=== PATIENT | female | born 1930 | race Caucasian/White ===

== ENCOUNTER 2019-09-12 09:22 | Emergency (ER) | payer OTHER ==
[~2019-09-12] VITALS: Ht 157.5 cm; Wt 59.0 kg
[2019-09-12 12:12] VITALS: BP 113/68
== END 2019-09-12 12:12 | disposition home or self-care (01) ==
LOC: ED 09:22
DX: S09.8XXA Other specified injuries of head, initial encounter (principal); I10 Essential (primary) hypertension; Z98.890 Other specified postprocedural states; Z90.710 Acquired absence of both cervix and uterus; W18.30XA Fall on same level, unspecified, initial encounter; Y93.89 Activity, other specified; Y92.89 Other specified places as the place of occurrence of the external cause; Y99.8 Other external cause status
CPT/HCPCS: J1885

== ENCOUNTER 2019-09-20 11:39 | Emergency (ER) | payer OTHER ==
[~2019-09-20] VITALS: Ht 162.6 cm; Wt 54.4 kg
[2019-09-20 11:42] VITALS: Ht 162.6 cm; Wt 54.4 kg
[2019-09-20 12:29] LABS: BASOPHIL % 0.4 % (0-2); PLATELET COUNT 222 x10^3mcL (130-400); RED CELL DISTRIBUTION WIDTH 15.8 % (11.5-14.5)
[2019-09-20 12:55] LABS: CALCIUM 9.5 mg/dL (8.5-10.1); CARBON DIOXIDE 29.4 mmol/L (21-32); CHLORIDE SERUM 102 mmol/L (98-107); CREATININE SERUM 0.9 mg/dL (0.6-1.0); GLUCOSE SERUM 87 mg/dL (74-106); POTASSIUM SERUM 3.7 mmol/L (3.5-5.1); SODIUM SERUM 141 mmol/L (136-145)
[2019-09-20 12:59] LABS: ALBUMIN 3.4 g/dL (3.4-5.0); ALKALINE PHOSPHATASE 116 U/L (46-116); ALT/SGPT 35 U/L (14-59); AST/SGOT 32 U/L (15-37); BILIRUBIN TOTAL 0.42 mg/dL (0.20-1.00); TOTAL PROTEIN, SERUM 7.6 g/dL (6.4-8.2)
[2019-09-20 13:27] LABS: CHOLESTEROL 253 mg/dL (<200); HDL CHOLESTEROL 88 mg/dL (40-60)
[2019-09-20 14:26] LABS: microscopic required? NO
[2019-09-20 14:46] LABS: UA SPECIFIC GRAVITY <=1.005 (1.005-1.035); urine erythrocyte NEGATIVE (NEGATIVE)
[2019-09-20 16:50] VITALS: BP 163/93
== END 2019-09-20 16:50 | disposition home or self-care (01) ==
LOC: ED 11:39
PROVIDERS: Emergency Medicine
DX: E86.0 Dehydration (principal); G31.84 Mild cognitive impairment of uncertain or unknown etiology; S09.8XXA Other specified injuries of head, initial encounter; I10 Essential (primary) hypertension; M19.90 Unspecified osteoarthritis, unspecified site; Z88.5 Allergy status to narcotic agent; Z88.6 Allergy status to analgesic agent; Z88.8 Allergy status to other drugs, medicaments and biological substances; W18.39XA Other fall on same level, initial encounter; Y93.89 Activity, other specified; Y92.89 Other specified places as the place of occurrence of the external cause; Y99.8 Other external cause status
CPT/HCPCS: 82962; J7030

== ENCOUNTER 2019-09-29 06:58 | Observation (INO) | payer OTHER ==
[~2019-09-29] VITALS: Ht 160 cm; Wt 54.4 kg
--- NOTE | 2019-09-29 07:02 | NUR ---
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" HOWEVER UNKNOWN LAST DOSE TIME, UPON ARRIVAL PT FOLLOWS COMMAND WHEN ASKED TO SUCCESS COACH BILATERAL HANDS AND FLEX BILATERAL FEET, PT OPENS EYES TO MY VOICE WHEN ASKED TO HOWEVER NONVERBAL AT THIS TIME, PUPILS BRISK AND REACTIVE, RESPIRATIONS EVEN AND UNLABORED, LUNGS CTA, AIRWAY PATENT WITH C-COLLAR IN PLACED, PT WEARING SWEATS AND LONG SLEEVE, SKIN PINK DRY WARM, PT NOTED TO BE HYPOTHERMIC, +PCM TO ALL EXTREMITIES, ABD SOFT ROUND NONDISTENDED, ABRASION WITH NO ACTIVE BLEEDING NOTED TO LEFT KNEE AND ECCYMOSIS NOTED TO RIGHT ANTERIOR THIGH, PT GOWNED, PLACED ON FULL CM IN SUPINE POSITION, WITH BED LOCKED IN LOWEST POSITION AND BOTH SIDE RAILS UP, MD SING AT BEDSIDE PERFORMING MSE.
--- NOTE | 2019-09-29 07:10 | NUR ---
MD MARSH MADE AWARE OF PT TEMP.,BLANKET WARMER WITH RECTAL PROBE IN PLACE
--- NOTE | 2019-09-29 07:11 | NUR ---
WARM BLANKE PLACED ON PT BODY AND ONE ACROSS HEAD
--- NOTE | 2019-09-29 07:11 | NUR ---
WARM BLANKET PLACED ON PT BODY AND ONE ACROSS HEAD
--- NOTE | 2019-09-29 07:14 | NUR ---
ROBERT ARCE/TELLY UNAVAILABLE AT THIS TIME IN ED, EMT CARMEN WENT TO ICU THEY INFORMED HIM THAT HE NEEDS TO CALL [facility]
--- NOTE | 2019-09-29 07:14 | NUR ---
TELLY JONES UNAVAILABLE AT THIS TIME IN ED, EMT CARMEN WENT TO ICU THEY INFORMED HIM THAT HE NEEDS TO CALL [facility]
--- NOTE | 2019-09-29 07:15 | NUR ---
[facility] PROVIDED BY RAY SHANNON [phone]
--- NOTE | 2019-09-29 07:15 | NUR ---
CONTINUOUS RECTAL PROBE IN PLACE
--- NOTE | 2019-09-29 07:23 | NUR ---
LAB AT BEDSIDE
--- NOTE | 2019-09-29 07:38 | NUR ---
NITISH ANDRADE RN INFORMED BREMEN MARIO OF NEED FOR BLANKET WARMER/GAYMAR
--- NOTE | 2019-09-29 07:41 | NUR ---
PT TAKEN TO CT VIA [facility]
[2019-09-29 07:49] LABS: PLATELET COUNT 216 x10^3mcL (130-400); RED CELL DISTRIBUTION WIDTH 15.9 % (11.5-14.5)
[2019-09-29 07:50] LABS: BASOPHIL % 0.3 % (0-2)
--- NOTE | 2019-09-29 08:10 | NUR ---
PER MD SING VERBAL ORDER HOLD PORTABLE CXR D/T C-COLLAR IN PLACE, RADIOLOGY AWARE
[2019-09-29 08:11] LABS: CARBON DIOXIDE 29.4 mmol/L (21-32); CHLORIDE SERUM 102 mmol/L (98-107); CREATININE SERUM 0.8 mg/dL (0.6-1.0); GLUCOSE SERUM 87 mg/dL (74-106); POTASSIUM SERUM 3.9 mmol/L (3.5-5.1); SODIUM SERUM 138 mmol/L (136-145)
--- NOTE | 2019-09-29 08:11 | NUR ---
MG MARSH MADE AWARE OF PT LYNN LANG RECONTACTED IN REGARDS TO NEEDING GAYMAR SHE INFORMED ME SHE WILL CONTACT ME AFTER SEEING IF OR HAS AN EXTRA ONE
[2019-09-29 08:12] LABS: ALBUMIN 3.3 g/dL (3.4-5.0); ALKALINE PHOSPHATASE 119 U/L (46-116); ALT/SGPT 39 U/L (14-59); AST/SGOT 30 U/L (15-37); BILIRUBIN TOTAL 0.6 mg/dL (0.20-1.00); CALCIUM 9.8 mg/dL (8.5-10.1); TOTAL PROTEIN, SERUM 7.7 g/dL (6.4-8.2)
--- NOTE | 2019-09-29 08:12 | NUR ---
2 WARM BLANKETS WITH THIN SHEET IN BETWEEN PLACED ON PT
--- NOTE | 2019-09-29 08:14 | NUR ---
LYNN BRADLEY CONTACTED ME INFORMED ME TO GO TO OR TO OBTAIN THE GAYMAR ROBERT
--- NOTE | 2019-09-29 08:35 | NUR ---
GAYMAR BLANKET OBTAINED, LEAKAGE NOTED, OR CONTACTED AND INFORMED ME THEY WILL DROP OFF ANOTHER GAYMAR BLANKET
--- NOTE | 2019-09-29 08:39 | NUR ---
OR STAFF PROVIDED MULTIPLE REPLACEMENT GAYMAR BLANKETS. THIN SHEET PLACED ON PT, GAYMAR BLANKET PLACED OVER THIN SHEET. RECTAL PROBE IN PLACE AND CONNECTED TO GAYMAR FOR CONTINUOUS RECTAL TEMP MONITORING. WILL CONTINUE TO MONITOR PT
--- NOTE | 2019-09-29 08:49 | NUR ---
PER MD MAXIMO DENISE TO D/C C-COLLAR, C-COLLAR REMOVED. VSS
--- NOTE | 2019-09-29 08:57 | NUR ---
PT REMAINS NSR ON CM AND FOLLOWS COMMANDS HOWEVER NO VERBAL RESPONSE NOTED AT THIS TIME
--- NOTE | 2019-09-29 09:14 | NUR ---
DAUGHTER ANNA CALLED, INFORMED HER I WILL CONTACT HER WHEN STATUS OF PT ADMITTANCE FOR D/C BACK TO [place] IS DETERMINED
--- NOTE | 2019-09-29 09:17 | NUR ---
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
--- NOTE | 2019-09-29 09:30 | NUR ---
PT REMAINS NSR ON CM WITH RESPIRATIONS EVEN AND UNLABORED, PT EYES NOTED TO BE OPEN AT THIS TIME, WILL CONTINUE TO MONITOR
--- NOTE | 2019-09-29 10:24 | NUR ---
PT ASLEEP BUT AROUSABLE IN POSITION OF COMFORT, RESPIRATIONS EVEN AND UNLABORED, NSR ON CM, WILL CONTINUE TO MONITOR RECTAL TEMP VIA RECTAL PROBE IN PLACE
--- NOTE | 2019-09-29 11:42 | NUR ---
PT RESTING IN POSITION OF COMFORT, RESPIRATIONS EVEN AND UNLABORED, NSR ON CM, WHEN PT ASKED IF SHE IS COLD SHE STS "NO" WHEN PT ASKED IF SHE IS WARM SHE STS NO"
[2019-09-29] MEDS ORDERED: COZAAR25 M1 (11:49)
[2019-09-29] MEDS ORDERED: TIROSINT13 MCG (11:49)
[2019-09-29] MEDS ORDERED: ADV200 ×2 (11:50→11:51)
[2019-09-29] MEDS ORDERED: ATI0.5 (11:50)
[2019-09-29] MEDS ORDERED: LORAZEPAM1 POW (11:50)
[2019-09-29] MEDS ORDERED: LOPERAMIDE HCL2 M1 (11:51)
[2019-09-29] MEDS ORDERED: RESTORIL7.5 MG (11:51)
[2019-09-29] MEDS ORDERED: ACETAMINOPHEN325 M3 (11:51)
[2019-09-29] MEDS ORDERED: GOOD NEIGH1200 MG/15 (11:52)
--- NOTE | 2019-09-29 12:05 | NUR ---
PT DAUGHTER, JIE, AT BEDSIDE
--- NOTE | 2019-09-29 12:07 | NUR ---
PER JIE, PT HAS HX FALLS "RECENTLY" MD MARSH MADE AWARE
--- NOTE | 2019-09-29 12:08 | NUR ---
PER JIE, "I WAS ON THE PHONE WITH THE PEOPLE THERE WHEN SHE FELL AND HEARD HER SAY HER BACK HURT" MD MARSH MADE AWARE
--- NOTE | 2019-09-29 12:33 | NUR ---
PER JIE, PT AMBULATES WITH WALKER AT [place], NO WALKER PRESENT AT TIME OF ARRIVAL
--- NOTE | 2019-09-29 12:34 | NUR ---
REPORT GIVEN TO REJI MONTOYA, SHE IS AWARE OF [employer] TEMP 97 DEGREES FARENHEIT BEFORE D/C GAYMAR WARMER PER MD SING VERBAL ORDER, GAYMAR MACHINE WILL BE TRANSPORTED TO SAME DAY SURGERY CENTER WITH PT.
[2019-09-29 13:26] VITALS: BP 143/82
[2019-09-29 13:31] VITALS: Ht 160 cm; Wt 54.4 kg
--- NOTE | 2019-09-29 13:32 | NUR ---
PT WAS RECEIV[facility] BY PRIMARY NURSE MENDOZA [facility]. PT SEEN LYING IN BED, AWAKE BUT DISORIENTED, ABLE TO FOLLOW SOME SIMPLE COMMANDS. NO FACIAL DROOP/ARM DRIFT NOTED. NO SOB NOTED, LUNG SOUNDS DIMINISHED ON AUSCULTATION, O2 SAT=94%. NO S/S OF CHEST PAIN/PRESSURE, NM=80. NO S/S OF ABDOMINAL DISCOMFORT. BOWEL SOUNDSA ACTIVE. HAD BM TODAY. W/ KHMER 16 MORALES CATHETER DRAINING W/ YELLOW COLORED URINE. W/ SCAB ON THE LEFT KNEE AND RIGHT THIGH ECCHYMOSIS, JANKI. PT MOANS WHEN TURNED AND REPOSITIONED. W/ GAYMAR WARMER BLANKET ON, RECTAL TEMP=96.8 AT THIS TIME. SIDE RAILS UPX2. CALL LIGHT ON REACH. DAUGHTER AT BEDSIDE. PRIMARY NURSE REJI AT BEDSIDE FOR CONTINUITY OF CARE
--- NOTE | 2019-09-29 14:46 | NUR ---
PT LYING IN BED A/A. PT BREATHING EQUAL/UNLABORED ON RA. PT IS MUMBLING BUT IS NOT CLEARLY COMMUNICATING. RECTAL TEMP IS 98.1F, GAYMAR WARMER WAS TURNED OFF. SKIN IS FREE FROM MAX. MORALES IN PLACE, FLOWING TO GRAVITY. IVF RUNNING AT 80ML/HR, SITE WNL. BED IN LOW POSITION, CALL LIGHT IN REACH, SAFETY PRECAUTIONS IN PLACE. WILL CONTINUE TO MONITOR
[2019-09-29] MEDS ORDERED: LOSARTAN POTASS25 M1 PO (15:18)
[2019-09-29] MEDS ORDERED: TIROSINT50 MC1 PO (15:18)
[2019-09-29] MEDS ORDERED: PROLIA60 MG/ML SC (15:19)
[2019-09-29] MEDS ORDERED: APAP EXTRA STR500 MG PO (15:19)
[2019-09-29] MEDS ORDERED: IBU600 M2 PO (15:20)
[2019-09-29] MEDS ORDERED: LOPERAMIDE HCL2 M1 PO (15:21)
[2019-09-29] MEDS ORDERED: ATI0.5 PO (15:21)
[2019-09-29] MEDS ORDERED: RES15 PO (15:22)
[2019-09-29 16:25] VITALS: BP 102/62; BP 202/62
[2019-09-29 16:39] LABS: UA SPECIFIC GRAVITY 1.025 (1.005-1.035); microscopic required? YES; urine erythrocyte NEGATIVE (NEGATIVE)
--- NOTE | 2019-09-29 18:28 | NUR ---
PT LYING IN BED A/A. BREATHING EQUAL/UNLABORED ON RA. PT IS MUMBLING BUT NO CLEAR COMMUNICATION STILL. IVF RUNNING AT 80ML/HR, SITE WNL. RECTAL TEMP IS NOW 98.2 F. BED IN LOW POSITION, CALL LIGHT IN REACH, SAFETY PRECAUTIONS IN PLACE. WILL ENDORSE TO NIGHT NURSE
--- NOTE | 2019-09-29 19:10 | NUR ---
RECEIVED REPORT FROM REJI MONTOYA. PT IS AWAKE, ALERT, AND DISORIENTED. PT IS ABLE TO FOLLOW SIMPLE COMMANDS AND ANSWER SIMPLE QUESTIONS AT TIMES. PT IS CONFUSED, BUT EASILY REORIENTED TO SURROUNDINGS. PT IS MOANING/LAUGHING AT TIMES, BUT IS UNABLE TO EXPRESS NEEDS AT THIS TIME. PT IS MED-SURG AND NO S/S OF CHEST PAIN OR PRESSURE IS NOTED AT THIS TIME. PT PULSES ARE PALPABLE AND CAP REFILL <3 SEC. PT LUNG SOUNDS ARE DIMINISHED TO BLL ON RA. PT BREATHING EVEN AND UNLABORED. NO S/S OF SOB OR RESPIRATORY DISTRESS NOTED AT THIS TIME. PT ABD SOFT AND NONDISTENDED. PT BOWEL SOUNDS ACTIVE X4. NO S/S OF N/V/D/C NOTED AT THIS TIME. PT HAS MORALES CATH IN PLACE DRAINING YELLOW URINE. PT HAS GENERALIZED WEAKNESS AND IS BEDBOUND AT THIS TIME. PT IV IS PATENT AND INTACT. PT HAS RECTAL TEMP IN PLACE READING 98.2F AT THIS TIME WITH A [employer] OF 97.0F WITH THE WARMER. WARMER IS TURNED OFF AT THIS TIME DUE TO TEMP [employer] ACHIEVED. CALL LIGHT WITHIN REACH. BED IN LOWEST POSITION. SIDE RAILS X2 UP. WILL CONTINUE TO MONITOR.
[2019-09-29 20:44] VITALS: BP 100/63
--- NOTE | 2019-09-29 21:50 | NUR ---
PT WAS ABLE TO VERBALIZE THAT SHE HAD PAIN IN HER BLE. PER NOV, ADMINISTERED MOTRIN PO. WILL REASSESS PAIN IN ONE HOUR. CALL LIGHT WITHIN REACH. BED IN LOWEST POSITION. SIDE RAILS X2 UP. WILL CONTINUE TO MONITOR.
--- NOTE | 2019-09-29 22:45 | NUR ---
PT DENIES ANY BLE PAIN AT THIS TIME. PT IS ASKING TO SPEAK WITH DAUGHTER RAY BECAUSE SHE STATES "I NEED TO FIND OUT WHAT'S GOING ON." ATTEMPTED TO CALL RAY, BUT NO ANSWER AT THIS TIME. INFORMED PT THAT I WILL TRY AGAIN IN THE MORNING. PT AGREED. CALL LIGHT WITHIN REACH. BED IN LOWEST POSITION. SIDE RAILS X2 UP. WILL CONTINUE TO MONITOR.
--- NOTE | 2019-09-30 02:16 | NUR ---
PT PULLED OUT IV BECAUSE SHE WAS SCARED. REASSURED AND REORIENTED PT THAT SHE IS IN THE HOSPITAL AND THAT SHE IS SAFE IN THE HOSPITAL. PT CALMED DOWN AND WAS ABLE TO UNDERSTAND THAT SHE HAD PULLED OUT HER IV, CATH INTACT. REINSERTED NEW IV TO LFA 22G. GOOD BLOOD RETURN. FLUSHED 10CC NS. NO S/S OF REDNESS, PAIN, OR SWELLING NOTED. CHANGED PT LINENS AND GOWN AND REPOSITIONED PT TO RIGHT SIDE. PT WAS ABLE TO VERBALIZE THAT HER LEFT HIP HURTS AND IT WAS BECAUSE SHE HAD FALLEN. WAS ABLE TO ASSESS PT THAT SHE IS AAOX2 TO PERSON, PLACE, AND THAT SHE LIVES AT [facility]. OFFERED PT SOME SIPS OF WATER AND PT TOLERATED WELL. EDUCATED PT TO USE THE CALL LIGHT WHEN HELP IS NEEDED AND PT AGREED. CALL LIGHT WITHIN REACH. BED IN LOWEST POSITION. SIDE RAILS X2 UP. WILL CONTINUE TO MONITOR.
--- NOTE | 2019-09-30 03:19 | NUR ---
PT SLEEPING AT THIS TIME. PT BREATHING EVEN AND UNLABORED. NO ACUTE DISTRESS NOTED. CALL LIGHT WITHIN REACH. BED IN LOWEST POSITION. SIDE RAILS X2 UP. WILL CONTINUE TO MONITOR.
--- NOTE | 2019-09-30 04:12 | NUR ---
PT WAS TRYING TO GET OUT OF BED. PT STATED "I NEED TO GO. I'M JUST WORRIED ABOUT MY DAUGHTER." REORIENTED THE PT THAT SHE WAS IN THE HOSPITAL AND THAT WE WOULD CONTACT HER DAUGHTER IN THE MORNING. PT AGREED AND CALMED DOWN. ASSISTED PT BACK TO BED. EDUCATED PT TO USE CALL LIGHT WHEN HELP IS NEEDED. PT AGREED. CALL LIGHT WITHIN REACH. BED IN LOWEST POSITION. SIDE RAILS X2 UP. WILL CONTINUE TO MONITOR.
--- NOTE | 2019-09-30 04:42 | NUR ---
PT SLEPT INTERMITTENTLY THROUGHOUT THE NIGHT. PT WAS DISORIENTED AT THE BEGINNING OF THE SHIFT AND WAS ONLY GRIMACING AND MOANING. PT RESPONDED WELL TO VERBAL STIMULI AND WAS ABLE TO MAKE NEEDS KNOWN. PT VERBALIZED THAT SHE WAS HAVING PAIN TO BLE AND TO HER LEFT HIP. PER MAR, ADMINISTERED MOTRIN PO AND PT DENIES ANY PAIN AFTERWARDS. ASSESSED PT NEURO STATUS AND PT IS AAOX2 TO NAME AND PLACE. PT IS AWARE THAT SHE IS IN THE HOSPITAL, BUT SEEMS VERY ANXIOUS ABOUT HER DAUGHTER. PT STATED "I AM MAKING THINGS HARDER FOR MY DAUGHTER AND I JUST NEED TO GO HOME." REORIENTED PT TO HER SURROUNDINGS AND LET HER KNOW THAT WE WOULD CONTACT HER DAUGHTER IN THE MORNING. PT COMPLIED WITH NURSING CARE DURING THE SHIFT. COMFORT AND SAFETY MEASURES WERE MAINTAINED. ALL QUESTIONS AND CONCERNS WERE ADDRESSED. WILL ENDORSE CARE TO DAY SHIFT NURSE. WILL CONTINUE TO MONITOR.
[2019-09-30 06:15] VITALS: BP 140/86
[2019-09-30 06:42] LABS: BASOPHIL % 0.4 % (0-2); PLATELET COUNT 206 x10^3mcL (130-400)
[2019-09-30 06:52] LABS: CARBON DIOXIDE 28.2 mmol/L (21-32); CHLORIDE SERUM 106 mmol/L (98-107); GLUCOSE SERUM 71 mg/dL (74-106); SODIUM SERUM 143 mmol/L (136-145)
[2019-09-30 06:53] LABS: CALCIUM 8.8 mg/dL (8.5-10.1); CREATININE SERUM 0.9 mg/dL (0.6-1.0)
[2019-09-30 06:57] LABS: RED CELL DISTRIBUTION WIDTH 16.2 % (11.5-14.5)
--- NOTE | 2019-09-30 07:20 | NUR ---
RECEIVED PT IN BED. ASSESSED AND DOCUMENTED. STABLE. DENIES ANY PAIN. SAFTEY PRECAUTIONS ARE IN PLACE. WILL MONITOR.
--- NOTE | 2019-09-30 07:31 | NUR ---
GAVE REPORT TO HERMELINDA MONTOYA. ALL QUESTIONS AND CONCERNS ADDRESSED.
[2019-09-30 08:45] VITALS: BP 139/70
--- NOTE | 2019-09-30 09:00 | NUR ---
PHYSICAL THERAPY SEEN THE PT AND AMBULATED THE PT WITH WALKER. SHE AMBULATED WITH SLOW STEADY GAIT. STABLE.
--- NOTE | 2019-09-30 12:50 | NUR ---
REMOVED MORALES CATH PER , CATH IS INTACT. PT COOPERATED WELL. STABLE, DENIES ANY PAIN.
[2019-09-30 12:52] VITALS: BP 145/86
--- NOTE | 2019-09-30 12:55 | NUR ---
CAME, SPOKE WITH PT AND HER DAUGHTER. SAID PT IS STABLE TO GO HOME. DENIES ANY PAIN. STABLE. WILL MONITOR, DAUGHTER AT BEDSIDE.
--- NOTE | 2019-09-30 13:00 | NUR ---
DAUGHTER SAID SHE WILL GO GET SOME LUNCH FOR HER AND WILL COME BACK TO TAKE HER. PT IS STABLE.
--- NOTE | 2019-09-30 14:40 | NUR ---
PT VOIDED AFTER CATH REMOVED, INCONTINENT OF URINE AND BOWEL. PT IS STABLE.
[2019-09-30 14:45] VITALS: BP 145/86
--- NOTE | 2019-09-30 15:40 | NUR ---
PT'S DAUGHTER CAME BACK, DISCHARGE INSTRUCTIONS AND PRESCRIPTION GIVEN. PB SIGNED AND SENT WITH PT. IV REMOVED AND DRESSING APPLIED. EMBOSSING TOOLSETTER WHEELED PT TO LOBBY ACCOMAPNIED WITH DAUGHTER. DC TO ASSISTED LIVING WITH HOME HEALTH P.T. PT IS STABLE. DENIES ANY PAIN.
== END 2019-09-30 15:42 | disposition home health service (06) ==
LOC: ED 06:58 → DU 11:56 → MU 11:56 → DU 11:56 → MU 12:56
PROVIDERS: Emergency Medicine; ADMIT Internal Medicine Pulmonary Disease
DX: N39.0 Urinary tract infection, site not specified (principal); E86.0 Dehydration; G93.41 Metabolic encephalopathy; R41.0 Disorientation, unspecified; I10 Essential (primary) hypertension; E03.9 Hypothyroidism, unspecified
CPT/HCPCS: 82962; 84439; 97116-GP; G0378; J0696; J7030; Q0092

== ENCOUNTER 2020-10-18 16:22 | Inpatient (IN) | payer OTHER ==
[~2020-10-18] VITALS: Ht 157.5 cm; Wt 43.1 kg
[~2020-10-18 16:22] MED LIST: ACETAMINOPHEN325 M3; ADV200; APAP EXTRA STR500 MG PO; ATI0.5; ATI0.5 PO; COZAAR25 M1; GOOD NEIGH1200 MG/15; IBU600 M2 PO; LOPERAMIDE HCL2 M1; LOPERAMIDE HCL2 M1 PO; LORAZEPAM1 POW; LOSARTAN POTASS25 M1 PO; PROLIA60 MG/ML SC; RES15 PO; RESTORIL7.5 MG; TIROSINT13 MCG; TIROSINT50 MC1 PO
[2020-10-18 16:32] VITALS: Ht 157.5 cm; Wt 43.1 kg
--- NOTE | 2020-10-18 16:45 | NUR ---
assumed care of pt, biba c/o involuntary movements. placed in rm 5 with gown and monitor, nsr seen at 90 bpm. pt is a/a/ox4, gcs:15, even and unlabored respirations seen, skin is w/p/d/i. pt c/o unvoluntary movements to bilat arms, legs, face, and entire body since this am. pt denies pain with these movements, however states "please stop" and is moaning. appears like a dystonic reaction. pt lives at [facility], receives lorazepam, temazapam, seroquel, and remuron. iv established scow captain by ems. devyn labs now. attempted to perform ekg however pt's movements prohibit capture. nad, vss, awaiting medical screening eval. will continue to monitor closely.
--- NOTE | 2020-10-18 16:54 | NUR ---
performed straight cath, sent urine sample to lab.
--- NOTE | 2020-10-18 17:05 | NUR ---
medicated pt with benadryl.
--- NOTE | 2020-10-18 17:11 | NUR ---
to ct via [facility].
[2020-10-18 17:21] LABS: BASOPHIL % 0.9 % (0.2-1.3); PLATELET COUNT 201 x10^3mcL (179-408)
[2020-10-18 17:22] LABS: RED CELL DISTRIBUTION WIDTH 15.3 % (12.3-17.7)
[2020-10-18 17:27] LABS: CALCIUM 8.8 mg/dL (8.5-10.1); CARBON DIOXIDE 25.5 mmol/L (21-32); CHLORIDE SERUM 104 mmol/L (98-107); GLUCOSE SERUM 133 mg/dL (74-106); POTASSIUM SERUM 3.3 mmol/L (3.5-5.1); SODIUM SERUM 138 mmol/L (136-145)
--- NOTE | 2020-10-18 17:28 | NUR ---
back from ct, nad. involuntary movements are still present. pt states "i just want it to stop."
[2020-10-18 17:31] LABS: ALKALINE PHOSPHATASE 108 U/L (46-116); ALT/SGPT 19 U/L (14-59); AST/SGOT 24 U/L (15-37); BILIRUBIN TOTAL 0.32 mg/dL (0.20-1.00); TOTAL PROTEIN, SERUM 7.9 g/dL (6.4-8.2)
[2020-10-18 17:32] LABS: ALBUMIN 3.1 g/dL (3.4-5.0)
--- NOTE | 2020-10-18 17:47 | NUR ---
troponin elevated 0.149, notified dr. case.
--- NOTE | 2020-10-18 18:33 | NUR ---
involuntary movements are lessening now. pt is still anxious, occasionally yelling out from gurney, and appears a little confused. pt states "i can't hear you." provided calming measures for pt.
--- NOTE | 2020-10-18 19:02 | NUR ---
repositioned pt up in bed. provided pt with water to drink.
--- NOTE | 2020-10-18 19:14 | NUR ---
report to hannah garza.
--- NOTE | 2020-10-18 19:19 | NUR ---
RECEIVED PT REPORT FROM JAN MERCEDES FOR CONTINUITY OF CARE. I WILL NOW ASSUME PRIMARY CARE OF THE PT
--- NOTE | 2020-10-18 19:53 | NUR ---
PT RESTING IN [facility] AT THIS TIME. PT STS THAT " ICANNOT HEAR, AND SPEAKS SOFLTY" BUT THEN WILL ANSWER QUESTIONS IN AN APPRORIATE TONE OF VOICE. PT IS A/O X2. PT RESPS ARE E/U. NO TWITCHING OR ERRATIC MOVEMENTS NOTED AT THIS TIME. NO ACD NOTED
[2020-10-18 20:44] LABS: CHOLESTEROL/HDL RATIO 4.2
[2020-10-18] MEDS ORDERED: MEG40 PO (23:18)
[2020-10-18] MEDS ORDERED: LEVO-T50 MCG PO (23:18)
[2020-10-18] MEDS ORDERED: MIRTAZAPINE15 M3 PO (23:18)
[2020-10-18] MEDS ORDERED: MACRODANTIN100 M1 PO (23:19)
[2020-10-18] MEDS ORDERED: SER25 PO (23:19)
[2020-10-18] MEDS ORDERED: TAB-A-VITE MUL1 EAC1 PO (23:20)
--- NOTE | 2020-10-18 23:31 | NUR ---
REPORT CALLED TO BARBIE MONTOYA.
--- NOTE | 2020-10-19 | NUR ---
Admitted this 89 y/o female from ED via [facility]. Alert and oriented x3. no respiratory distress noted on room air. Denies pain. Denies n/v. Admission assessment done. Normal sinus rhythm. Call light within reach.
[2020-10-19 00:42] VITALS: BP 151/98
--- NOTE | 2020-10-19 04:16 | NUR ---
Afebrile. No significant change in condition noted. Denies pain. Assisted with needs.
[2020-10-19 06:05] VITALS: BP 149/94
[2020-10-19 07:21] LABS: BASOPHIL % 0.8 % (0.2-1.3); PLATELET COUNT 201 x10^3mcL (179-408)
[2020-10-19 07:36] LABS: RED CELL DISTRIBUTION WIDTH 15.4 % (12.3-17.7)
--- NOTE | 2020-10-19 08:24 | NUR ---
RECEIVED AWAKE AND ALERT. ON RA AND O2 SATS 97%. NO ACUTE RESP. DISTRESS NOTED. PT EATING BREAKFAST. HOB ELEVETED AND CALL LIGHT WITHIN REACH. WILL CONTINUE WITH PLAN OF CARE.
[2020-10-19 08:47] VITALS: BP 131/88
[2020-10-19 09:43] LABS: CALCIUM 8.5 mg/dL (8.5-10.1); CHLORIDE SERUM 105 mmol/L (98-107); CREATININE SERUM 0.6 mg/dL (0.6-1.0); GLUCOSE SERUM 76 mg/dL (74-106); POTASSIUM SERUM 3.3 mmol/L (3.5-5.1); SODIUM SERUM 140 mmol/L (136-145)
--- NOTE | 2020-10-19 09:59 | NUR ---
DR. ELLSWORTH MADE AWARE OF SLIGHTLY ELEVETED TROP. NO NEW ORDERS RECEIVED.
[2020-10-19 12:41] VITALS: BP 128/82
--- NOTE | 2020-10-19 15:21 | NUR ---
PT AWAKE, ALERT, AND ORIENTED BUT HALLUCINATING, PT EATING LUNCH, NO S/S OF RESPIRATORY DISTRESS, ON ROOM AIR, BED AT LOWEST POSITION, CALL LIGHT WITHIN REACH, WILL CONTINUE WITH PLAN OF CARE.
--- NOTE | 2020-10-19 18:25 | NUR ---
PT AWAKE, ALERT, AND ORIENTED BUT HALLUCINATING, PT RESTING COMFORTABLY ON BED, NO S/S OF RESPIRATORY DISTRESS, ON ROOM AIR, LAC HL REMOVED, CATH INTACT, NEW LINE INSERTED TO RFA. PATIENT TOLERATED, BED AT LOWEST POSITION, CALL LIGHT WITHIN REACH.
--- NOTE | 2020-10-19 18:30 | NUR ---
NURSING CO-SIGN THE DOCUMENTATION ENTERED BY THE RN GISELA HAS BEEN REVIEWED. REVIEWED/CO-SIGNED BY: Suki Cordova DOCUMENTATION DONE BY:HAJA PORTILLO
[2020-10-19 18:32] VITALS: BP 135/75
--- NOTE | 2020-10-19 20:05 | NUR ---
RECEIVED PT FROM DAY SHIFT NURSE. PT IS A/OX3, CONFUSED AT TIMES. BED ALARM IS ON. ON TELE #25 READING SR. PULSES ARE PALPABLE. NO EDEMA NOTED. O2 SAT OF 99% ON RA. PT VOIDS. PT HAS GENERALIZED WEAKNESS. BLANCHABLE REDNESS ON COCCYX, JANKI. PT HAS RFA, CURRENTLY SALINE LOCK. PT IS COOPERATIVE. CALL LIGHT W/IN REACH. BED LOCKED AND IN LOWEST POSITION. INFORMED PT TO USE CALL LIGHT NEEDED.
[2020-10-19 20:16] VITALS: BP 154/87
--- NOTE | 2020-10-20 00:05 | NUR ---
PT IS AWAKE/RESTLESS TRYING TO GET OUT OF BED AT THIS TIME. PT ATTEMPTING TO PULL LINES AND SCRATCHING/HITTING/BITTING STAFF. TRIED TO SPEAK WITH PT REGARDING WHAT WAS WRONG, ATTEMPTED TO DEESCALATE PT BY SPEAKING TO HER AND USING DISTRACTIONS SUCH TV. INTERVENTIONS DID NOT WORK. PT WAS THEN PLACED ON BILATERAL SOFT WRIST RESTRAINTS, SKIN INTACT. WILL INFORM MD. O2 SAT OF 96% ON RA. CALL LIGHT W/IN REACH. BED ALARM ON, BED LOCKED AND IN LOWEST POSITION. INFORMED PT TO USE CALL LIGHT NEEDED.
[2020-10-20 04:45] VITALS: BP 135/89
--- NOTE | 2020-10-20 05:29 | NUR ---
DR. KAT PAGED AT THIS TIME, WAITING FOR CALL BACK.
--- NOTE | 2020-10-20 06:30 | NUR ---
ATTEMPTED TO REACH DAUGHTER RAY FISH, LEFT VOICEMAIL AT THIS TIME.
--- NOTE | 2020-10-20 07:04 | NUR ---
PT IS AWAKE IN BED AT THIS TIME. RR EVEN AND UNLABORED. NO C/O OF SOB, WILSON OR CHEST PAIN. O2 SAT OF 96% ON RA. SKIN IS WARM, D/I. CALL LIGHT W/IN REACH. BED LOCKED AND IN LOWEST POSITION. INFORMED PT TO USE CALL LIGHT NEEDED. PT NEEDS WERE MET THROUGHOUT SHIFT. WILL ENDORSE CARE TO ONCOMING SHIFT NURSE.
--- NOTE | 2020-10-20 08:06 | NUR ---
PT AWAKE AND ALERT, ON ROOM AIR, NO S/S OF RESPIRATORY DISTRESS, PATIENT RESTING COMFORTABLY, BED IN LOWEST POSITION, CALL LIGHT WITHIN REACH, WILL CONTINUE TO MONITOR.
--- NOTE | 2020-10-20 09:00 | NUR ---
PT AAOX3, PT ON ROOM AIR, NO S/S OF RESPIRATORY DISTRESS, TELE # 25, SKIN DRY AND INTACT, PT DENIES PAIN, ACTIVE BOWEL SOUNDS PRESENT, ABDOMEN SOFT, ROUND, NON-DISTENDED, RFA IV SITE CDI AND PATENT, ON SOFT RESTRAINTS BILATERALLY, BED AT LOWEST POSITION, CALL LIGHT WITHIN REACH, WILL CONTINUE WITH PLAN OF CARE.
--- NOTE | 2020-10-20 10:11 | NUR ---
SPOKE TO DAUGHTER RAY AND UPDATED HER ON PT.
[2020-10-20 10:15] VITALS: BP 119/76
--- NOTE | 2020-10-20 12:23 | NUR ---
MORALES CATH INSERTED, DRAINING YELLOW URINE TO GRAVITY
[2020-10-20 12:36] LABS: microscopic required? NO
[2020-10-20 13:01] LABS: urine erythrocyte NEGATIVE (NEGATIVE)
[2020-10-20 13:40] VITALS: BP 120/71
[2020-10-20 13:53] LABS: AMPHETAMINE QUAL UR NONE DETECTED (See below)
--- NOTE | 2020-10-20 15:49 | NUR ---
PT COMFORTABLY SLEEPING, NO S/S OF SOB, MORALES CATH. DRAINING TO GRAVITY, BILATERAL RESTRAINTS ON, BED AT LOWEST POSITION, CALL LIGHT WITHIN REACH, WILL CONTINUE WITH PLAN OF CARE.
[2020-10-20 17:20] VITALS: BP 146/75
--- NOTE | 2020-10-20 17:59 | NUR ---
PT AWAKE AND ALERT, PT RESTING COMFORTABLY, PT ON SOFT RESTRAINTS BILATERALLY, IN NO ACUTE DISTRESS, ON ROOM AIR, SHOWS NO S/S OF PAIN, ALL NEEDS WERE MET AT THIS TIME, BED AT LOWEST POSITION, CALL LIGHT WITHIN REACH, WILL ENDORSE TO FREELANCE GRAPHIC DESIGNER NURSE.
--- NOTE | 2020-10-20 19:00 | NUR ---
NURSING CO-SIGN THE DOCUMENTATION ENTERED BY THE RN GISELA HAS BEEN REVIEWED. REVIEWED/CO-SIGNED BY: Suki Cordova DOCUMENTATION DONE BY:HAJA PORTILLO
[2020-10-20 19:15] VITALS: BP 116/74
--- NOTE | 2020-10-20 19:22 | NUR ---
PT RECEIVED LYING IN BED SUPINE WITH HOB ELEVATED 30 DEGREES AWAKE AND WATCHING TV. PT IS A/OX3 EXCEPT TO TIME, PT IS VERY SLOW TO RESPOND TO QUESTIONS AND HAS POOR VOICE PROJECTION. PT ALSO NOTED TO BE MAKING ODD FACES. TELE 25 SR HR 67, NO S/S CHEST PAIN, DIZZINESS AND LIGHTHEADEDNESS NOTED. PERIPHERAL PULSES WEAK, NO EDEMA NOTED. RESPIRATIONS EVEN UNLABORED, DIMINISHED BASES, RA. BS ACTIVE, AND SOFT AND FLAT, NON-TENDER. LBM 10/17. MORALES, PATENT, DRAINING TO GRAVITY, CLEAR YELLOW, NO COMPLICATIONS TO SITE. SKIN INTACT. DENIES PAIN. GENERALIZED WEAKNESS, BEDREST, ABLE TO ASSIST WITH TURNING. BILATERAL SOFT WRIST RESTRAINTS, ROM AND RELEASE PROVIDED, NO INJUIRES NOTED. SL RFA 20G, PATENT, NO COMPLICATIONS TO SITE. BED IN LOWEST, SIDE RAILS X 4 FOR SAFETY, CALL LIGHT WITHIN REACH.
--- NOTE | 2020-10-20 19:36 | NUR ---
PT RECEIVED LYING IN BED WITH HOB ELEVATED 30 DEGREES RESTING. A/OX4, CALM AND COOPERATIVE. TELE 40 [address] HR 115, DENIES CHEST PAIN, DIZZINESS, AND LIGHTHEADEDNESS. BIPAP 16/10 RR 20 FIO2 100%. PT TOLERATING WELL AT THIS TIME, SPO2 90%. BS ACTIVE, ABD SOFT, NON TENDER, LBM 10/18. MORALES, PATENT, DRAINING TO GRAVITY, CLEAR YELLOW. GENERALZIED WEAKNESS, BEDREST, ABLE TO ASSIST WITH TURNING. SKIN INTACT. DENIES PAIN. LPICC PATENT, ASPIRATES AND FLUSHES WELL, RUNNING D10@50ML/HR. PT PENDING TPN. BED IN LOWEST POSITION, SIDE RAILS X 2, CALL LIGHT WITHIN REACH.
--- NOTE | 2020-10-20 23:00 | NUR ---
PT. REPORT RECIEVED FROM RN, PT. RESTING IN BED W/ EYES CLOSED, A&OX3, TELE 25 SR, RR EVEN AND UNLABORED ON RA, CHEST RISE SYMT, RFA IV NOTED AND WNL, BILATERAL SOFT RESTRAINTS NOTED TO PREVENT HARM, BED IN LOWEST POSITION, CALL LIGHT WITHIN REACH, SR UPX2, WILL CONT TO MONITOR.
--- NOTE | 2020-10-21 00:34 | NUR ---
PT. CURRENTLY RESTING IN BED W/ EYES CLOSED, RR EVEN AND UNLABORED ON RA, CHEST RISE SYMT, TELE 25 SR, RFA IV INTACT AND WNL, BILATERAL WRIST RESTRAINTS WNL, ALL SAFETY MEASURES IN PLACE, WILL CONT TO MONITOR.
--- NOTE | 2020-10-21 01:31 | NUR ---
WILL ENDORSE CARE TO RN SHAUN, ALL SAFETY MEASURES IN PLACE.
--- NOTE | 2020-10-21 01:34 | NUR ---
LATE ENTRY - 20:30 PT NOTED TO SESATURATE ON THE MONITOR. RN ENTERED PT ROOM TO FIND PT HAD SELF REMOVED BIPAP. BIPAP PLACED BACK ON. PT CONTINUED TO SELF REMOVE BIPAP MULTIPLE TIMES WITH DESATURATION INTO MID 70S. ATIVAN 1MG IVP ADMINISTERED, INEFFECTIVE. PT EDUCATED TO MAINTAIN BIPAP MASK ON TO PREVENT DESATURATION. PT VERBALIZED UNDERSTANDING BUT CONTINUED TO SELF REMOVE BIPAP. PT MOVED CLOSER TO NURSING STATION FOR CLOSE MONTIORING. UNABLE TO LEAVE PT SIDE DUE TO NON COMPLIANCE. O2 SATURATION REMAINS IN LOW 80S. ONE TIME ORDER FOR ATIVAN 1 MG OBTAINED, ADMISNITERED, INEFFECTIVE. RN STILL UNABLE TO LEAVE PT SIDE. PT EXPLAINED THAT O2 SATURATION IS NOT IMPROVING AND MAY REQUIRE INTUBATION SHOULD SHE NOT LEAVE HER MASK ON. PT STATED MULTIPLE TMES THAT SHE DID NOT WANT TO BE INTUBATED. RN SPOKE WITH PT DAUGHTER AND PT STATES THAT SHE WOULD LIKE PT TO BE INTUBATED IF NEED BE. DR ASCENCIO NOTIFIED OF PT CONDITION. PER MD TRANSFER TO ICU AND OBTAIN ABG. ORDER FOR PRECEDEX OBTAINED. PT STARTED ON PRECEDEX WITH MINIMAL EFFECTIVENESS. ICU BED AVIALABLE. PT TRANSFERRED. PT FAMILY AWARE,.
[2020-10-21 05:18] VITALS: BP 120/68
--- NOTE | 2020-10-21 08:00 | NUR ---
RECEIVED PT FROM NIGHT NURSE. RESTING COMFORTABLY IN BED. EYES OPEN TO VOICE. DIFFICULTY FINDING WORDS, TRIES TO SPEAK. FOLLOWS COMMANDS. WILL FURTHER ASSESS ORIENTATION. MORALES CATHETER IN PLACE. CURRENTLY IN BILAT SOFT WRIST RESTRAINTS, CIRCULATION WNL. SINUS MONE ON THE MONITOR, 56 BPM. ON ROOM AIR WITH 98% SAO2. NO ACUTE DISTRESS NOTED. WILL CONTINUE TO MONITOR.
[2020-10-21 08:07] VITALS: BP 139/77
--- NOTE | 2020-10-21 10:37 | NUR ---
REFUSED PO MEDS AND MD NOTIFIED. ISOLATION PRECAUTIONS REDUCED TO STANDARD PRECAUTIONS.
[2020-10-21 10:52] LABS: PLATELET COUNT 192 x10^3mcL (179-408)
[2020-10-21 10:57] LABS: BASOPHIL % 4.9 % (0.2-1.3); CALCIUM 8.8 mg/dL (8.5-10.1); CARBON DIOXIDE 26.4 mmol/L (21-32); CHLORIDE SERUM 106 mmol/L (98-107); CREATININE SERUM 0.8 mg/dL (0.6-1.0); GLUCOSE SERUM 73 mg/dL (74-106); POTASSIUM SERUM 3.6 mmol/L (3.5-5.1); RED CELL DISTRIBUTION WIDTH 15.2 % (12.3-17.7); SODIUM SERUM 137 mmol/L (136-145)
[2020-10-21 11:02] LABS: ALKALINE PHOSPHATASE 91 U/L (46-116); ALT/SGPT 17 U/L (14-59); AST/SGOT 22 U/L (15-37); BILIRUBIN TOTAL 0.38 mg/dL (0.20-1.00); MAGNESIUM 1.6 mg/dL (1.8-2.4); TOTAL PROTEIN, SERUM 6.6 g/dL (6.4-8.2)
[2020-10-21 11:17] LABS: ALBUMIN 2.6 g/dL (3.4-5.0)
--- NOTE | 2020-10-21 12:03 | NUR ---
PT TAKEN FOR CT ANGIO VIA BED
[2020-10-21 12:25] VITALS: BP 141/74
--- NOTE | 2020-10-21 12:25 | NUR ---
PT RETURNED FROM CT, ALERT AND IN NO DISTRESS. WILL MONITOR.
--- NOTE | 2020-10-21 16:12 | NUR ---
Initial Nutrition Assessment: ROBERT GAMEZ 89F HR Dx: NSTEMI PMHx: HTN, Dementia, Osteoarthritis, PSHx: none noted Labs: (10/19) K 3.3L, Troponin 0.167H, alb 3.1L, (10/18) Elsa 212H, LDL 130H Meds: Zithromax, heparin sodium, Rocephin, Colace, Aspirin Diet: Cardiac diet PO intake since admission: (10/20) B: 95%, L: 65%, D: 0% *pt noted to spit out food and not want to eat Ht: 157.48cm/62in Wt: 43.091kg/94.8lbs BMI: 17.4k/gm2 Bed scale: not able to obtain IBW: 50kg/110lbs %IBW: 86.2% UBW: not able to obtain Age: 89 Food Allergies: not able to obtain Edema: no edema noted Last BM: 10/17 Skin: skin intact Leonel: 16 PCR negative. Per H and P (10/19), pt is an 89-year-old female with past medical history of dementia as well as hypothyroidism along with history of osteoarthritis and peripheral neuropathy who was brought into the emergency room with complaints of altered level of consciousness. Patient denied any chest pain or shortness of breath her any fever, but patient was observed to have strange behavior where she hyperextended her neck with some spasms possibly Pt was admitted with dx: NSTEMI, CAP, Dementia, Hypothyroidism, essential HTN RD Note (10/21/2020) Per progress note (10/21), pt is still confused and has bilateral restrains on, and pt is not in distress and is Afib, and denied CP. Spoke with pt's RN, pt was AO x 2 and reusing food, liquids and medications. Pt's PO intake was poor this morning but did not exhibit GI distress. Last BM was on 10/17 as noted. ONS is not recommended d/t pt not drinking fluid either. Will continue to monitor, and pt may need nutrition d/t poor PO intake. Problem with: N/V/D/C: none per RN Problems with: Chewing: Swallowing: none noted Current appetite: poor per RN. Pt refused foods, liquid and medication Recent wt change: not able to obtain %wt change: not able to obtain Vitamin/Supplement use: MVI noted in home meds per H and P (10/19) Special diet at home: not able to obtain Physical activity: not able to obtain Nutrition education given (specify specific nutrition education and handout given): not given at this time d/t confusion Food-drug interactions? Education given? n/a Estimated Nutritional Needs Based on actual body weight (43kg) Energy: 4326-5767 kcal/day (30-35kcal/kg for underweight for age) Protein: 51-65 g/day (1.2-1.5 g/kg for underweight for age) Fluid: 0913-7535 mL/day (1 mL/kcal) Nutrition Diagnosis: 1. Inadequate energy and protein intake r/t mental state associated poor PO intake a/e/b pt is AOx2, h/o dementia, and RN reported pt being non-compliant with PO intake. 2. Severely underweight for age r/t imbalance intake and output a/e/b pt BMI = 17.4kg/m2. Intervention 1. Continue Cardiac diet as tolerate 2. Recommend consider appetite stimulants 3. If appropriate to start nutrition support per MD, recommend Jevity 1.2 starting at 20ml/hr and advance 10ml Q8H to goal rate 50ml/hr. At goal rate, regimen will provide 1200ml volume, 1440kcal, 66g protein and 968.4ml free water meeting 100% of estimated kcal and protein needs. 4. If appropriate to start nutrition support per MD, recommend fluid flush 110ml Q6H to provide additional 440ml and 1408ml total free water. 5. If bolus feeding is needed, recommend Jevity 1.2 at 300ml Q6H and fwf 110ml Q6H. 6. If pt's mental state improves and willing to eat upon follow up, recommend ensure high protein BID. Monitor/Evaluate Goal: PO intake at least 75% of estimated needs Monitor: PO intake, Labs, GI function, Diet implementation F/U in 2-3 days as high risk 10/23-
[2020-10-21 16:45] VITALS: BP 139/80
--- NOTE | 2020-10-21 17:09 | NUR ---
PT REFUSES ALL PO MEDICATIONS. LAB RESULTS SHOWED MAGNESIUM LEVEL OF 1.6 WILL GIVE IV MAGNESIUM PROTOCOL.
--- NOTE | 2020-10-21 19:19 | NUR ---
PT CONSULT ORDERED. APPEARS WEAK AND LIKELY INSUFFICIENT FUNCTIONAL ABILITY. DID NOT EAT DURING SHIFT. WILL TASTE FOOD BUT THEN REFUSE. SINUS MONE ON THE MONITOR THROUGHOUT SHIFT. LOWEST 53 BPM. MORALES CATHETER IN PLACE. IV MAG GIVEN FOR LOW MAG OF 1.6. SPOKE WITH DAUGHTER, REPORTS PT COMES FROM [facility]. REPORTED TO UPS DRIVER. REFUSED DAILY ASPIRIN THIS AM, RECEIVED HEPARIN SQ. NO ACUTE DISTRESS THROUGHOUT SHIFT. AAOX2, TO SELF AND PLACE. ENDORSED CARE TO NIGHT NURSE.
--- NOTE | 2020-10-21 19:30 | NUR ---
RECEIVED PT FROM AM NURSE. A/OX3, CONFUSED. TELE 25, NSR, HR 67. DENIES CHEST PAIN, PRESSURE, AND PALPITATIONS. ON ROOM AIR, NO RESPIRATORY DISTRESS AT THIS TIME, BREATHING UNLABORED AND REGULAR. PULSES PALPABLE TO BUE/BLE, NO EDEMA NOTED. F/C IN PLACE AND DRAINING. GENERALIZED WEAKNESS NOTED. DENIES PAIN AT THIS TIME. IV R FOREARM, SL. BILAT SOFT WRIST RESTRAINTS IN PLACE, CIRCULATION WNL. SKIN WARM. ALL NEEDS MET. BED IN LOW POSITION. CALL LIGHT WITHIN REACH. WILL CONTINUE TO MONITOR.
[2020-10-21 20:20] VITALS: BP 139/77
--- NOTE | 2020-10-21 20:30 | NUR ---
GAVE FULL REPORT TO AND ENDORSED CARE TO CHRISTOPHE MONTOYA.
--- NOTE | 2020-10-21 22:00 | NUR ---
TRANSFERED FROM [facility] BED ASLEEP. RESPONDS TO VERBAL COMMUNICATION. NAD NOTED. MORALES INTACT SECURED. BILATERAL SOFT WRIST RESTRAINTS +CIRCULATION. CALL RUEDA IN REACH. SAFETY MAINTAINED.
--- NOTE | 2020-10-22 05:02 | NUR ---
IN BED NAD DISTRESS NOTED. RESPIRATIONS UNLABORED. BILATERAL SOFT WRIST RESTRAINTS WITH + CIRCULATON. SAFETY MAINTAINED. CALL RUEDA IN REACH
[2020-10-22 05:24] VITALS: BP 122/70
--- NOTE | 2020-10-22 07:35 | NUR ---
RECEIVED PATIENT FROM [facility] SHIFT NURSE IN STABLE CONDITION. PATIENT IS AWAKE, ALERT AND ORIENTED X2. NO RESPIRATORY DISTRESS. NSR. NO CHEST PAIN. WILL CONTINUE TO MONITOR PATIENT.
[2020-10-22 08:16] VITALS: BP 107/64
--- NOTE | 2020-10-22 08:27 | NUR ---
PATIENT IS ALERT AND WAKE. ORIENTED X 2.CONFUSED GRIMACE FACIAL EXPRESSIONS BUT EXPRESSES 0/10 PAIN. CALM AND COOPERATIVE. SLOW RESPONSES. TELE # 25 NSR/SB HR70. PULSES PRESENT BUT WEAK. RLL WHEEZING ON EXHALATION. ON ROOM AIR. NO RESPIRATORY DISTRESS NOTED. BS ACTIVE.SOFT NON-DISTENDED.NON-TENDER. PATIENT HAS HARD TIME CHEWING AND POOR APPETITE. MORALES IN PLACE, CLEAR YELLOW URINE. ON FLUID RESTRICTIONS. GENERALIZED MUSCLE WEAKNESS. SOFT WRIST RESTRAINTS IN PLACE. ASSESSED CSM ON BOTH RESTRAINTS.WNL. REMOVED RESTRAINTS FOR ROM.SKIN IS INTACT. WARM TO TOUCH AND DRY. RFA IV 20G POSSIBLE INFILTRATION. STOPPED IV. WILL REASSESS LINE AND START NEW LINE IF NECESSARY.
--- NOTE | 2020-10-22 08:45 | NUR ---
ASSESSED PATIENTS NEED FOR SOFT WRIST RESTRAINTS. PATIENT IS CALM AND COOPERATIVE AND NO LONGER PULLING LINES AND TUBES. REMOVED PATIENTS RESTRAINTS.WILL CONTINUE TO MONITOR AND REASSESS.
--- NOTE | 2020-10-22 09:28 | NUR ---
RECEIVED PATIENT FROM WASHER BLANKET NURSE IN STABLE CONDITION. AWAKE, ALERT AND ORIENTED X2. CALM AND COOPERATIVE AND RESTING.NO RESPIRATORY DISTRESS NOTED.
--- NOTE | 2020-10-22 11:20 | NUR ---
SPOKE WITH DR. VANG REGARDING PATIENTS PT EVALUATION. PATIENT WAS WEAK AND UNABLE TO AMBULATE. ONLY SAT AT BEDSIDE. AT RISK FOR FALL. REPORTED THAT PATIENT HAS POOR APPETITE AND DID NOT WANT TO EAT BREAKFAST. REQUESTED LAB ORDERS. STATED HE WILL PUT ORDERS IN SYSTEM. PATIENT IS A STABLE CALM AND COOPERATIVE AT THE MOMENT.
[2020-10-22] MEDS ORDERED: LEVOFLOXACIN500 M1 PO (11:48)
[2020-10-22 12:48] VITALS: BP 116/67
--- NOTE | 2020-10-22 14:00 | NUR ---
NURSING CO-SIGN THE DOCUMENTATION ENTERED BY THE IP HAS BEEN REVIEWED. REVIEWED/CO-SIGNED BY: Cynthia Coppola DOCUMENTATION DONE BY:DEZ SANCHEZ
--- NOTE | 2020-10-22 15:05 | NUR ---
PT WAS SEEN FOR DYSPHAGIA. PT WAS ABLE TO SAFELY SWALLOW PUREE DIET WITH NECTAR THICK LIQUID. MILD COUGH FOR THIN LIQUID AND DIFFICULTY WITH MASTICATION SKILLS FOR MS DIET. RECOMMENDATION PUREE DIET WITH NECTAR THICK LIQUID.
--- NOTE | 2020-10-22 15:05 | NUR ---
PATIENT IS RESTING AND ASLEEP. NO RESPIRATORY DISTRESS NOTED. CALL LIGHT WITHIN REACH. BED IN LOWEST POSITION.
[2020-10-22 16:09] VITALS: BP 123/72
[2020-10-22 16:32] VITALS: BP 123/72
--- NOTE | 2020-10-22 17:04 | NUR ---
PT ASSESSED BY RT AND WAS ON ROOM AIR, SATS-94%, RESP RATE-18 BPM, CLEAR BREATH SOUNDS BILATERALLY. NO ACTION NEEDED AT THIS TIME. PT ASKED IF SHE WAS SHORT OF BREATH AND STATED SHE WAS NOT, JUST WAITING FOR HER SUPPER. WILL CONTINUE TO MONITOR
--- NOTE | 2020-10-22 17:10 | NUR ---
STARTED NEW IV ON PATIENTS RIGHT FOREARM. PREVIOUS LINE INFILTRATED. NEW LINE 20G RIGHT FOREARM. CHECKED FOR BLOOD RETURN AND FLUSHED FOR PATENCY. NO PAIN WHEN FLUSHING. WRAPPED WITH KURLEX TO KEEP IN PLACE.
--- NOTE | 2020-10-22 17:40 | NUR ---
RT EVAL DONE AND NO FURTHER TREATMENT NECESSARY ACCORDING TO RT. CTA BILATERALLY AND NO RESPIRATORY DISTRESS. REASSESSED PATIENTS LUNG SOUNDS MYSELF. NO LONGER HEAR WHEEZING ON EXHALATION OF RIGHT LOWER LOBE. NO RESPIRATORY DISTRESS. PATIENT IS CALM AND RESTING AND WAITING FOR DINNER.
--- NOTE | 2020-10-22 18:22 | NUR ---
PATIENT IS AWAKE ALERT AND ORIENTED X 2.IN BED EATING DINNER.TOLERATING PUREE DIET WELL. NO CHOKING. NO SOB OR RESPIRATORY DISTRESS. CALM AND PLEASANT. SPOKE WITH DAUGHTER ON THE PHONE. RESTING AFTER DINNER. WILL CONTINUE TO MONITOR PATIENT.
--- NOTE | 2020-10-22 19:00 | NUR ---
GAVE REPORT TO [facility] SHIFT NURSE. PATIENT REMAINS STABLE DENIES ANY PAIN. NO RESPIRATORY DISTRESS. NO CHEST PAIN. BED IN LOWEST POSITION. CALL LIGHT WITHIN REACH.
--- NOTE | 2020-10-22 19:19 | NUR ---
SITTING UP IN BED. RESTRAINTS OFF. RESPIRATIONS UNLABORED ON ROOM AIR. AAO*3.MORALES SECURED AND DRAINING BELOW BLADDER LEVEL. CALL RUEDA IN REACH. SAFETY MAINTAINED. ALL NEEDS MET.
--- NOTE | 2020-10-22 20:27 | NUR ---
DISPLAYING INAPPROPRIATE BEHAVIOR ATTEMPTED TO SNATCH AND THROW CUP WHILE GIVING PO MED. REDIRECTED AND REORIENTED. MONITORING
[2020-10-22 21:21] VITALS: BP 122/68
--- NOTE | 2020-10-23 05:16 | NUR ---
ASLEEP. RESPIRATION UNLABORED ON ROOM AIR. NAD NOTED. BEDSIDE CARE COMPLETED. SAFETY MAINTAINED.CALL LIGHT IN REACH
[2020-10-23 05:20] VITALS: BP 116/65
--- NOTE | 2020-10-23 07:05 | NUR ---
RECEIVED PATIENT FROM PROJECT ESTIMATOR NURSE. IN STABLE CONDITION. PATIENT IS ALERT AND AWAKE AND WAITING FOR BREAKFAST. BEDIN LOWEST POSITION.
[2020-10-23 08:56] VITALS: BP 103/71
--- NOTE | 2020-10-23 10:00 | NUR ---
NURSING CO-SIGN THE DOCUMENTATION ENTERED BY THE IP HAS BEEN REVIEWED. REVIEWED/CO-SIGNED BY: Cynthia Coppola DOCUMENTATION DONE BY:DEZ URBINA
--- NOTE | 2020-10-23 11:06 | NUR ---
PATIENT IS AWAKE, ALERT AND ORIENTED X1. CALM AND RESTING. NO RESPIRATORY DISTRESS.NO CHEST PAIN.CALL LIGHT WITHIN REACH.BED ALARM ON AND IN LOWEST POSITION.
[2020-10-23 12:06] VITALS: BP 119/74
--- NOTE | 2020-10-23 13:23 | NUR ---
PATIENT IS IN BED CALM AND RESTING. NO RESPIRATORY DISTRESS. NO CHEST PAIN. JUST FINISHED HER LUNCH AT ABOUT 30% OF LUNCH. CALL LIGHT WITHIN REACH.BEDIN LOWEST POSITION.
--- NOTE | 2020-10-23 14:51 | NUR ---
PATIENT IS AWAKE AND ALERT. ORIENTED X 2. RESTING. REPOSITION PATIENT ON RIGHT SIDE TO RELIEVE PRESSURE OFF BONY PROMINENCES. USED PILLOWS FOR SUPPORT. PLACED BED ALARM ON. CALL LIGHT WITHIN REACH. BED IN LOWEST POSITION.
--- NOTE | 2020-10-23 17:01 | NUR ---
GAVE PATIENT A BED BATH AND USED SHAMPOO CAP FOR HAIR. ASSESSED PATIENTS SKIN. GAVE CLEAN SHEETS AND GOWN. REPOSITIONED FROM SUPINE TO RIGHT SIDE. USED PILLOWS FOR SUPPORT AND FLOATED BONY PROMINENCES. LEFT CALL LIGHT WITHIN REACH. BED IN LOWEST POSITION.
[2020-10-23 17:21] VITALS: BP 141/75
--- NOTE | 2020-10-23 19:10 | NUR ---
RECEIVED PT FROM AM RN. PT AA&OX3, CONFUSED WITH PLACE. PT DENIES CHEST PAIN OR CHEST DISCOMOFORT AT THIS TIME. PT ON TELE #25, HEART RATE 75BPM, S1S2 HEARD. LUNG SOUNDS CLEAR BILATEARAL, ON ROOM AIR, NO RESPIRATORY DISTRESS NOTED. PULSES PALPABLE, NO EDEMA NOTED. BOWEL SOUNDS ACTIVE. UNKNOWN LAST BM. PT HAS MORALES CATH ON WITH CLEAR YELLOW URINE NOTED. PT APPEARS WEAK AND TIRED.ABDOMEN SOFT AND NONTENDER. SKIN WARM, DRY AND INTACT. IV SITE INTACT AND PATEENT. SAFETY PRECAUTIONS IN PLACE, CALL LIGHT WIHTIN REACH. WILL CONTINUE TO MONITOR AND CARE FOR PT.
--- NOTE | 2020-10-23 19:20 | NUR ---
GAVE REPORT TO SHIVA CUNHA SHIRT AND GAVE PATIENT IN STABLE CONDITION. NO RESPIRATORY DISTRESS NO CHEST PAIN. COMFORTABLE AND READY FOR SLEEP. BED IN LOWEST POSITION CALL LIGHT WITHIN REACH. BED ALARM ON.
[2020-10-23 20:13] VITALS: BP 138/83
--- NOTE | 2020-10-24 01:00 | NUR ---
INTO CHECKED ON PT AND REPOSITIONED PT. CHANGED GOWN AND BEDSHEET. ANUSHA-CARE DONE. PT TOLERATED WELL WITHOUT C/O OF DISCOMFORT. SAFETY PRECAUTIONS IN PLACE, CALL LIGHT WITHIN REACH, BED IN LOWEST POSITION. WILL CONTINUE TO MONITOR PT.
--- NOTE | 2020-10-24 03:23 | NUR ---
INTO CHECKED ON PT. RE-POSITIONED PT. PT WAS AWAKE AND TRING TO MOVE OUT OF BED. PT APPEARS CONFUSED WITH PLACE, AND SITUATION. DUE TO PT'S PAST MEDICAL HISTORY OF DEMENTIA. RE-ORIENTED PT, REDUCED SIMULATION, EXPLAINED PT NOW IT IS CIS COORDINATOR. PATIENT VERBALLY UNDERSTOOD AND WILL TRY BACK TO SLEEP. SAFETY PRECAUTIONS IN PLACE, CALL LIGHT WITHIN REACH, BED IN LOWEST POSITION. WILL CLOSELY MONITOR PATIENT.
[2020-10-24 05:01] VITALS: BP 125/80
--- NOTE | 2020-10-24 06:37 | NUR ---
PATIENT RESTED INTERVAL DURING SHIFT. PT TRIED TO MOVE OUT OF BED MULTIPLE TIMES. PT STATED THAT SHE NEED HER DAUGHTER COME HERE TO TAKE CARE OF HER. PT AA&OX2 AT THIS TIME, AWAKE, ORIENTED ONLY TO HERSELF ( HER NAME). PT C/O ABDOMINAL DISCOMFORT, BUT UNABLE TO STATE WHERE THE LOCATION, INTENSE, AND SCALE. SHE STATED," MY STOMACH HURTS VERY MUCH BECAUSE I HAVE TWO DOSES OF COVID VACCINES." WHILE SHE WAS WATCHING TV ( ON THE TV IT WAS NEW REPORTING OF COVID VACCINES). SAFETY PRECAUTIONS IN PLACE, BED IN LOWEST POSITION , BED ALARM IS ON. CALL LIGHT WITHIN REACH. WILL CLOSELY CARE PATINET UNTIL GIVE REPORT AND ENDORSE ALL CARE TO AM RN.
[2020-10-24 06:58] LABS: BASOPHIL % 0.4 % (0.2-1.3); PLATELET COUNT 263 x10^3mcL (179-408)
[2020-10-24 07:07] LABS: RED CELL DISTRIBUTION WIDTH 14.8 % (12.3-17.7)
[2020-10-24 07:26] LABS: ALKALINE PHOSPHATASE 93 U/L (46-116); ALT/SGPT 35 U/L (14-59); AST/SGOT 43 U/L (15-37); BILIRUBIN TOTAL 0.3 mg/dL (0.20-1.00); CALCIUM 9.3 mg/dL (8.5-10.1); CARBON DIOXIDE 29.5 mmol/L (21-32); CHLORIDE SERUM 103 mmol/L (98-107); CREATININE SERUM 0.8 mg/dL (0.6-1.0); GLUCOSE SERUM 102 mg/dL (74-106); MAGNESIUM 1.6 mg/dL (1.8-2.4); PHOSPHOROUS 3.4 mg/dL (2.5-4.9); POTASSIUM SERUM 3.5 mmol/L (3.5-5.1); SODIUM SERUM 139 mmol/L (136-145); TOTAL PROTEIN, SERUM 7.2 g/dL (6.4-8.2)
[2020-10-24 07:28] LABS: ALBUMIN 2.8 g/dL (3.4-5.0)
--- NOTE | 2020-10-24 07:56 | NUR ---
RECEIVED PATIENT FROM POLICY WRITER.PT AWAKE, ALERT AND ORIENTED WITH PERIODS OF CONFUSION. TELE#25. BREATING E/U, NO ACUTE RESP DISTRESS NOTED, ON RA AND SPO2 WNL. PULSES WEAK BLE, NO EDEMA NOTED. LAST BM UNKNOWN. MORALES WITH SATALOCK INPLACE. SKIN CDI, DENIES PAIN/DISCOMFORT. IV TO RFA 20G, HL PATENT/INTACT. CALL LIGHT WITHIN REACH, BED AT LOWEST POSITION. WILL MONITOR PATIENT CLOSELY.
[2020-10-24 09:55] VITALS: BP 136/97
--- NOTE | 2020-10-24 11:39 | NUR ---
1. Continue a Pureed diet as tolerated. 2. If appetite remains very poor recommend appetite stimulant. If pt's mental state improves and willing to eat upon follow up, recommend ensure high protein BID.
--- NOTE | 2020-10-24 11:39 | NUR ---
Follow Up Nutrition Assessment: MargueriteA ROBERT GAMEZ 89F H/R Dx: NSTEMI PMHx: HTN, Dementia, Osteoarthritis, PSHx: none noted Labs: (10/21) BUN 19H, BG 73L, MAG 1.6L, ALB 2.6L (10/19) K 3.3L, Troponin 0.167H, alb 3.1L, (10/18) Elsa 212H, LDL 130H Meds: Zithromax, heparin sodium, Rocephin, Colace, Aspirin, Zyprexa, Magnesium sulfate Diet: Cardiac diet (pureed/nectar thick liquids) PO intake since admission: recent [employer] swallow eval, (10/22-) average in take 22%, increasing on pureed Ht: 157.48cm/62in Wt: 43.091kg/94.8lbs BMI: 17.4k/gm2 Bed scale: not able to obtain IBW: 50kg/110lbs %IBW: 86.2% UBW: not able to obtain Age: 89 Food Allergies: not able to obtain/confuse Edema: no edema noted Last BM: 10/17 Skin: skin intact Leonel: 16 PCR negative. Pt was admitted with dx: NSTEMI, CAP, Dementia, Hypothyroidism, essential HTN Per last RD Note (10/21/2020) Per progress note (10/21), pt is still confused and has bilateral restrains on, and pt is not in distress and is Afib, and denied CP. Spoke with pt's RN, pt was AO x 2 and reusing food, liquids and medications. Pt's PO intake was poor this morning but did not exhibit GI distress. Last BM was on 10/17 as noted. ONS is not recommended d/t pt not drinking fluid either. Will continue to monitor, and pt may need nutrition d/t poor PO intake. RD note (10/24/20): Per progress note, pt has been r/u for PE and is pending placement to SNF. Patient was having trouble chewing and choking with solid foods on 10/22. Swallow Evaluation completed and diet has been adjusted to Pureed/Cardiac diet with [place] Thick Liquids. PO intake has improved slightly with new diet (10%/30%/20%). During visit pt confused/dementia, Per RN has poor appetite eating small bites. Tolerating diet, no other GI issues. Will monitor. Problem with: N/V/D/C: none per RN Problems with: Chewing: Swallowing: none noted, [employer] salomon conducted Current appetite: poor per RN, small bites Estimated Nutritional Needs Based on actual body weight (43kg) Energy: 7979-5185 kcal/day (30-35kcal/kg for underweight for age) Protein: 51-65 g/day (1.2-1.5 g/kg for underweight for age) Fluid: 1743-8254 mL/day (1 mL/kcal) Nutrition Diagnosis: 1. Inadequate energy and protein intake r/t mental state associated poor PO intake a/e/b pt is AOx2, h/o dementia, and RN reported pt being non-compliant with PO intake. (ongoing) 2. Severely underweight for age r/t imbalance intake and output a/e/b pt BMI = 17.4kg/m2. (ongoing) Intervention 1. Continue a Pureed diet as tolerated. 2. If appetite remains very poor recommend appetite stimulant. 3. If appropriate to start nutrition support per MD, recommend Jevity 1.2 starting at 20ml/hr and advance 10ml Q8H to goal rate 50ml/hr. At goal rate, regimen will provide 1200ml volume, 1440kcal, 66g protein and 968.4ml free water meeting 100% of estimated kcal and protein needs. 4. If appropriate to start nutrition support per MD, recommend fluid flush 110ml Q6H to provide additional 440ml and 1408ml total free water. 5. If bolus feeding is needed, recommend Jevity 1.2 at 300ml Q6H and fwf 110ml Q6H. 6. If pt's mental state improves and willing to eat upon follow up, recommend ensure high protein BID. Monitor/Evaluate Goal: PO intake at least 75% of estimated needs Monitor: PO intake, Labs, GI function, new texture/ diet F/U in 2-3 days as high risk 10/26-
[2020-10-24 13:07] VITALS: BP 125/82
--- NOTE | 2020-10-24 14:11 | NUR ---
GAVE REPORT TO NURSE UPTON AT [facility] AT 1420 10/24/20. PT WILL TRANSFER TO R17. DR. LUCIO. MORALES REMOVED, IV ACCESS TO RFA ROMOVED CATH/SITE INTACT.
--- NOTE | 2020-10-24 14:12 | NUR ---
REMOVED MORALES CATHER AND HL.TO RT.AC. BOTH CATHERS INTACT, PATIENT JE. WELL WITH PROCEDURES.
--- NOTE | 2020-10-24 14:46 | NUR ---
PT TRANSFERED TO [facility] BY [place] IN NO RESP DISTRESS.AWAKE,ALERT AND ORIENTED, PERIOD OF CONFUSION. PT WAS CALM AND COOPERATIVE AT TIME OF TRANSFER. PT AND DAUGHTER WERE AWARE OF TRANSFER. DC INSTRUCTION REVIEWED WITH PATIENT.PT VERBALIZED UNDERSTANDING. GAVE REPORT TO NURSE UPTON AT [facility]. VS STABLE. RX TO PHARMACY. IV ACCESS AND MORALES REMOVED. NO C/O PAIN/DISCOMFORT AT TIME OF DC. PT BELONGING TAKEN WITH PATIENT.
== END 2020-10-24 14:35 | DRG 280 ==
LOC: ED 16:22 → DU 18:52
PROVIDERS: Emergency Medicine; Hospitalist; ADMIT Hospitalist; ATTEND Hospitalist
DX: I21.4 Non-ST elevation (NSTEMI) myocardial infarction (principal); J18.9 Pneumonia, unspecified organism; F03.91 Unspecified dementia, unspecified severity, with behavioral disturbance; Z20.822 Contact with and (suspected) exposure to COVID-19; G47.00 Insomnia, unspecified; E03.9 Hypothyroidism, unspecified; R41.89 Other symptoms and signs involving cognitive functions and awareness; I10 Essential (primary) hypertension; M19.90 Unspecified osteoarthritis, unspecified site; G62.9 Polyneuropathy, unspecified; Z79.899 Other long term (current) drug therapy; Z88.8 Allergy status to other drugs, medicaments and biological substances; Z88.5 Allergy status to narcotic agent; Z88.1 Allergy status to other antibiotic agents; Z79.891 Long term (current) use of opiate analgesic; Z79.01 Long term (current) use of anticoagulants
CPT/HCPCS: 85378; 92526-GN; 92610-GN; 97116-GP; G0378; G0480; J0456; J0696; J1200; J1644; J3475; J7030; Q9967; U0003